=== PATIENT | female | born 1995 | race Caucasian/White ===

== ENCOUNTER 2017-12-06 19:37 | Emergency (ER) | payer OTHER ==
[~2017-12-06] VITALS: Ht 167.6 cm; Wt 54.4 kg
[~2017-12-06 19:37] MED LIST: Amoxicillin875 MG PO; HYDACE5 PO; IBUP600 PO; Norco 5-325 Ta1 EACH PO; PERM5TC TOP; Percocet 5-3251 EACH PO; Ultram50 MG PO; Zofran Odt4 MG SL
== END 2017-12-06 22:01 | disposition home or self-care (01) ==
LOC: ER 19:37
DX: S51.812A Laceration without foreign body of left forearm, initial encounter (principal); W26.0XXA Contact with knife, initial encounter
CPT/HCPCS: 12002; 90471; 90714; 99283

== ENCOUNTER 2017-12-31 13:50 | Emergency (ER) | payer OTHER ==
[~2017-12-31] VITALS: Ht 167.6 cm; Wt 54.0 kg
[2017-12-31] MEDS ORDERED: Amox Tr-K Clv1 EAC2 PO (14:20)
[2017-12-31] MEDS ORDERED: CLON.1 PO (14:21)
[2017-12-31] MEDS ORDERED: Cleocin HCl300 MG PO (14:30)
== END 2017-12-31 14:35 | disposition home or self-care (01) ==
LOC: ER 13:50
DX: K04.7 Periapical abscess without sinus (principal)
CPT/HCPCS: 99283

== ENCOUNTER 2018-08-28 05:21 | Emergency (ER) | payer OTHER ==
[~2018-08-28] VITALS: Ht 165.1 cm; Wt 56.7 kg
[~2018-08-28 05:21] MED LIST changes: +Amox Tr-K Clv1 EAC2 PO; +CLON.1 PO; +Cleocin HCl300 MG PO
[2018-08-28] MEDS ORDERED: CEPH500 PO (05:45)
== END 2018-08-28 06:25 | disposition home or self-care (01) ==
LOC: ER 05:21
DX: S61.512A Laceration without foreign body of left wrist, initial encounter (principal); X78.1XXA Intentional self-harm by knife, initial encounter; Z79.899 Other long term (current) drug therapy; F41.9 Anxiety disorder, unspecified
CPT/HCPCS: 12004; 99284-25